=== PATIENT | male | born 1970 | race African-American/Black ===

== ENCOUNTER 2018-03-04 06:16 | Day surgery (SDC) | payer BC ==
[~2018-03-04] VITALS: Ht 182.9 cm; Wt 127.0 kg
[~2018-03-04 06:16] MED LIST: ALBUTEROL SUL0.083 % IN; AMLODIPINE5 MG PO; ASPIRIN81 MG PO; BP MED; LIPITOR20 M1 PO; LISINOPRIL10 MG PO; ONE DAILY MENS PO; PERCOCET 10/31 COMBO PO
[2018-03-04] MEDS ORDERED: PERCOCET 5/325M1 TAB PO (08:20)
[2018-03-04] MEDS ORDERED: MOTRIN800 MG PO (08:20)
[2018-03-04 08:37] VITALS: BP 131/66
== END 2018-03-04 08:40 | disposition home or self-care (01) | DRG 572 ==
LOC: ORM 06:16
PROVIDERS: ATTEND Surgery
PROC: 0JBL0ZZ Excision of Right Upper Leg Subcutaneous Tissue and Fascia, Open Approach (ICD-10-PCS; principal; 2018-03-04)
DX: D17.23 Benign lipomatous neoplasm of skin and subcutaneous tissue of right leg (principal)

== ENCOUNTER 2022-09-18 09:42 | Day surgery (SDC) | payer BC ==
[~2022-09-18] VITALS: Ht 182.9 cm; Wt 131.5 kg
[~2022-09-18 09:42] MED LIST changes: +CRESTOR40 MG PO; +LOSARTAN POTASS50 MG PO; +METOPROL TAR25 MG PO; +MOTRIN800 MG PO; +PERCOCET 5/325M1 TAB PO; +TRULICITY1.5 MG/0.5 IJ; +VENTOLIN HFA108 MCG IN
[2022-09-18 12:43] VITALS: BP 159/89
== END 2022-09-18 12:35 | disposition home or self-care (01) | DRG 951 ==
LOC: ENDO 09:42
PROVIDERS: ATTEND Surgery
PROC: 0DBK8ZX Excision of Ascending Colon, Via Natural or Artificial Opening Endoscopic, Diagnostic (ICD-10-PCS; principal; 2022-09-18)
PROC: 3E0H8KZ Introduction of Other Diagnostic Substance into Lower GI, Via Natural or Artificial Opening Endoscopic (ICD-10-PCS; 2022-09-18)
DX: Z12.11 Encounter for screening for malignant neoplasm of colon (principal); D12.2 Benign neoplasm of ascending colon; Z80.0 Family history of malignant neoplasm of digestive organs